=== PATIENT | male | born 1995 | race Caucasian/White ===

== ENCOUNTER 2025-06-26 07:25 | Day surgery (SDC) | payer BC ==
[~2025-06-26] VITALS: Ht 180.3 cm; Wt 86.0 kg
--- NOTE | ~2025-06-26 | OR ---
[facility] [address], [place] [address] Draft DATE OF OPERATION: 06/26/2025 SURGEON: Felix Garcia MD PREOPERATIVE DIAGNOSIS: Septal deformity, inferior turbinate hypertrophy. POSTOPERATIVE DIAGNOSIS: Septal deformity, inferior turbinate hypertrophy. PROCEDURE: Septoplasty cautery bilateral inferior turbinate submucosal. ANESTHESIA: General LMA, CARTRIDGE FILLER, Abel Garcia. PREOP HISTORY: Roscoe is a 29-year-old young man with nasal obstruction, chronic, unresponsive to appropriate medications. Office exam has showed a significant septal deformity left side nearly completely obstructive with inferior turbinate hypertrophy. He is taken to the operating room for the above-mentioned procedures. OPERATIVE PROCEDURE AND FINDINGS: After informed consent, the patient was taken to the operating room, placed in the supine position where general LMA anesthesia was induced. The patient and procedure were verified. The patient received preoperative intranasal oxymetazoline, intravenous Ancef. Headlight speculum exam of the nasal cavity showed hypertrophic inferior turbinate on the right. The left side had a septal deformity with a large spur inferiorly. Septal mucosa was injected with 1% lidocaine with epi. The septal deformity was excised with the Chadwick on the left side. The spur extending all the way back to the sphenoid rostrum was cartilage and bone excised and deformity toward the right side. The airway was markedly improved. Further impingement on the inferior turbinate, minimal bleeding. The inferior turbinates were then cauterized with a long handle needle point cautery multiple passes starting on the left. The inferior turbinate cauterized on the medial inferior surface starting anteriorly extending all the way back posteriorly. Excellent shrinkage was obtained. Same procedure on the right inferior turbinate. Hemostasis was verified. The packing was then placed, one piece of Merocel each side, trimmed, coated with Neosporin and tied anteriorly over a pad. The pharynx suctioned clear of blood PATIENT NAME: ROSCOE HOOKER OPERATIVE REPORT DATE OF : [birth year] REPORT #: [id number] PHYSICIAN: FELIX GARCIA MD PCP: SLADE DEL CID DO REPORT IS CONFIDENTIAL AND NOT TO BE RELEASED WITHOUT AUTHORIZATION [facility] [address] [place] [id number] Draft secretions. The patient was then awakened, extubated, and transported to recovery room in good condition. No complications. BLOOD LOSS: Minimal. SPECIMEN: None. DRAINS: None. PACKING: One piece of Merocel each nostril. Felix Garcia MD GC/MODL /[id number] Copies: ~ PATIENT NAME: ROSCOE HOOKER OPERATIVE REPORT DATE OF : [birth year] REPORT #: [id number] PHYSICIAN: FELIX GARCIA MD PCP: SLADE DEL CID DO REPORT IS CONFIDENTIAL AND NOT TO BE RELEASED WITHOUT AUTHORIZATION
[~2025-06-26 07:25] MED LIST: AMOXICILLIN500 MG PO; CEFAZOLIN SODIUM 1 GM in SODIUM CHLORIDE 0.9% 100 ML IV SCH; IBLOOD GLUCOSE TEST STRIP 1 EA TEST VI PRN; LACTATED RINGER'S 1,000 ML IV SCH; LIDOCAINE HCL 1% 5 ML SDV INJ ONE; MULTI VITAMIN1 EACH PO; OXYMETAZOLINE HCL 30 ML BTL NAS SCH
[2025-06-26 08:15] VITALS: BP 120/62
[2025-06-26] MEDS ORDERED: LIDOCAINE 1% W/ EPI 1:100,000 20 ML MDV ONE (09:02)
[2025-06-26] MEDS ORDERED: fentaNYL citrate 100 MCG/2 ML VIAL ONE (09:14)
[2025-06-26] MEDS ORDERED: MIDAZOLAM HCL 2 MG/2 ML VIAL ONE (09:14)
[2025-06-26] MEDS ORDERED: LIDOCAINE HCL 2% 5 ML SDV ONE (09:14)
[2025-06-26] MEDS ORDERED: DEXAMETHASONE SOD PHOS 4 MG/ML VIAL ONE (09:16)
[2025-06-26] MEDS ORDERED: IBLOOD GLUCOSE TEST STRIP 1 EA TEST VI PRN (09:45)
[2025-06-26] MEDS ORDERED: PROCHLORPERAZINE EDISYLATE 10 MG/2 ML VIAL IV PRN (09:45)
[2025-06-26] MEDS ORDERED: HYDROmorphone HCL 1 MG/ML SYR IV PRN (09:45)
[2025-06-26] MEDS ORDERED: NALOXONE HCL 0.4 MG SYR IV PRN (09:45)
[2025-06-26] MEDS ORDERED: fentaNYL citrate 50 MCG/ML SDV IV PRN (09:45)
--- NOTE | 2025-06-26 10:05 | NUR ---
06/26/25 1005 Sheets,Micheline 0931 PT ARRIVED TO PACU ON 6L VIA MASK, WITH ORAL AIRWAY IN PLACE. INSTALLATION SUPERVISOR USED SUCTION AND SMALL AMOUNT OF RED DRAINAGE NOTED. JAW THRUST USED TO MAINTAIN AIRWAY. 2881 PT WOKE TO PAINFUL STIMULI AND ORAL AIRWAY REMOVED, PT REACHING UP TO HIS FACE AND EDUCAITON GIVEN ON NOT GRABBING HIS NOSE.
[2025-06-26 10:25] VITALS: BP 138/90
[2025-06-26] MEDS ORDERED: SEVOFLURANE 250 ML BTL INH ONE (11:19)
--- NOTE | 2025-06-26 11:19 | NUR ---
1030: PATIENT BACK IN DAY SURGERY ROOM FROM PACU. RATES PAIN AROUND 3/10 IN NOSE, NASAL SEPTUM, FACIAL AREAS. NASAL PACKING IN PLACE. NO DRAINAGE AT THIS TIME. IV SITE WNL. SCDs ON. GIVEN ICE WATER AND ORANGE JUICE PER REQUEST. FIANCE AT BEDSIDE. CALL LIGHT WITHIN REACH.
[2025-06-26 11:28] VITALS: BP 137/79
[2025-06-26] MEDS ORDERED: HYDROCODON-ACE1 EA10 PO (12:12)
[2025-06-26] MEDS ORDERED: CEPHALEXIN500 M1 PO (12:13)
[2025-06-26 12:30] VITALS: BP 134/73
--- NOTE | 2025-06-26 12:50 | NUR ---
1100: MOUSTACHE DRESSING PLACED ON PATIENT FOR DRAINAGE BY OTHER RN. CALL LIGHT WITHIN REACH. 1130: VS CHECKED. MOUSTACHE DRESSING IN PLACE. RATES PAIN 3-4/10. DENIES NEED FOR PAIN MEDICATION AT THIS TIME. FIANCE AT BEDSIDE. PRESCRIPTION GIVEN TO FIANCE TO DROP OFF. WATER REFILLED. SCDs ON. IV SITE WNL. CALL LIGHT WITHIN REACH. 1210: PATIENT ASSISTED OOB AND TO BATHROOM. VOID WITHOUT DIFFICULTY. GAIT STEADY TO BATHROOM AND BACK TO ROOM. PATIENT GETTING DRESSED FIANCE IN ROOM TO ASSIST. 1230: DISCHARGE INSTRUCTIONS GIVEN TO PATIENT. VS CHECKED. IV D'D WNL. TIP INTACT. DRESSING APPLIED. MOUSTACHE DRESSING CHANGED. 1238: PATIENT DISCHARGED TO HOME VIA WHEELCHAIR WITH FIANCE.
== END 2025-06-26 12:38 | disposition home or self-care (01) ==
LOC: OPS 07:25 → DS 07:25 → OPS 09:00 → DS 10:15 → OPS 10:15
PROVIDERS: ATTEND Otolaryngology
PROC: 09BM8ZZ Excision of Nasal Septum, Via Natural or Artificial Opening Endoscopic (ICD-10-PCS; principal; 2025-06-26 09:00)
PROC: 095L7ZZ Destruction of Nasal Turbinate, Via Natural or Artificial Opening (ICD-10-PCS; 2025-06-26 09:00)
DX: J34.2 Deviated nasal septum (principal); J34.3 Hypertrophy of nasal turbinates
CPT/HCPCS: 00160; J0690; J1100; J2003; J2250; J2405; J2704; J3010; J7121

== ENCOUNTER 2025-08-06 17:29 | Emergency (ER) | payer BC ==
[~2025-08-06] VITALS: Ht 180.3 cm; Wt 87.0 kg
--- NOTE | ~2025-08-06 | EKG ---
[facility] [address] [facility] [place], [place] [address] Draft EK completed, results pending confirmation PATIENT NAME: ROSCOE HOOKER Electrocardiogram DATE OF : [birth year] PHYSICIAN: PRELIMINARY REPORT #: [id number] REPORT IS CONFIDENTIAL AND NOT TO BE RELEASED WITHOUT AUTHORIZATION
[~2025-08-06 17:29] MED LIST changes: -CEFAZOLIN SODIUM 1 GM in SODIUM CHLORIDE 0.9% 100 ML IV SCH; +CEPHALEXIN500 M1 PO; +HYDROCODON-ACE1 EA10 PO; -IBLOOD GLUCOSE TEST STRIP 1 EA TEST VI PRN; -LACTATED RINGER'S 1,000 ML IV SCH; -LIDOCAINE HCL 1% 5 ML SDV INJ ONE; -OXYMETAZOLINE HCL 30 ML BTL NAS SCH
[2025-08-06 19:25] LABS: MCH 30.2 PG (25.7-32.2); MCHC 37.1 g/dL (32.3-36.5); MCV 81.3 fL (79.0-92.2); RBC 3.68 M/uL (4.63-6.08)
[2025-08-06 19:45] LABS: ALT (SGPT) 30 U/L (14-59); AST (SGOT) 17 U/L (15-37); GLOMERULAR FILTRATION RATE,EST 123 mL/min (>60); INR 1.22 (0.80-1.30); LACTATE DEHYDROGENASE 222 U/L (85-227); PROTEIN, TOTAL 7.5 g/dL (6.4-8.2); PROTIME 15.0 Sec (11.2-14.2); UREA NITROGEN 13 mg/dL (7-18)
[2025-08-06 19:46] LABS: LYMPHOCYTES, MANUAL DIFF 44; MONOCYTES, MANUAL DIFF 8; NEUTROPHILS, MANUAL DIFF 48
[2025-08-06 20:42] LABS: ABO O; RH POSITIVE
[2025-08-06 20:43] LABS: ABO O; ANTIBODY SCREEN NEGATIVE; RH POSITIVE
[2025-08-06 21:02] LABS: CORONAVIRUS COVID-19 AG NEGATIVE (NEGATIVE)
[2025-08-06 21:44] LABS: BLOOD/HGB, URINE TRACE-I (Negative); KETONE, URINE NEGATIVE (Negative); LEUK ESTERASE, URINE NEGATIVE (negative); NITRITE, URINE NEGATIVE (negative)
[2025-08-06 21:58] LABS: BACTERIA, URINE RARE /hpf (negative); CASTS, URINE NONE SEEN \\lpf; CRYSTALS, URINE NONE SEEN (0-1+); EPITHELIAL CELLS, URINE SQUAMOUS 1+ /lpf (0-1+); REFLEX CULTURE, URINE No (No)
[2025-08-06 23:44] VITALS: BP 128/79
== END 2025-08-06 23:20 | disposition short-term general hospital (02) ==
LOC: ED 17:29
PROVIDERS: Internal Medicine
DX: D65 Disseminated intravascular coagulation [defibrination syndrome] (principal); D61.818 Other pancytopenia
CPT/HCPCS: 36415; 36430; 71045; 80053; 81001; 82550; 83615; 84550; 85025; 85379; 85384; 85610; 85730; 86140; 86850; 86900; 86901; 93005; 93010; 99285-25; G0480; P9012; P9035